=== PATIENT | male | born 1990 | race Two or more races ===

== ENCOUNTER 2020-05-09 01:34 | Emergency (ER) | payer SELFPAY ==
--- NOTE | 2020-05-09 01:52 | EDM.PDOC ---
ED HPI GENERAL MEDICAL PROBLEM - General Chief Complaint: Lower Extremity Injury/Pain Stated Complaint: RIGHT KNEE PAIN Time Seen by Provider: 05/09/20 01:35 Source of Information: Reports: Patient History Limitations: Reports: No Limitations - History of Present Illness INITIAL COMMENTS - FREE TEXT/NARRATIVE: 29M presents for a few months of worsening R knee pain. Atraumatic. No h/o overuse. Pain worse with standing and rest, slightly better when walking on it. R knee Pain Score (Numeric/FACES): 10 - Related Data Allergies Allergy/AdvReac Type Severity Reaction Status Date / Time No Known Allergies Allergy Verified 05/09/20 01:42 Home Meds: Home Meds . [No Known Home Meds] 05/09/20 [History] Past Medical History Respiratory History: Reports: None Psychiatric History: Reports: ADHD, Bipolar Social & Family History - Caffeine Use Caffeine Use: Reports: Coffee - Recreational Drug Use Recreational Drug Use: No Review of Systems - Review of Systems Review Of Systems: Comprehensive ROS is negative, except as noted in HPI. ED EXAM, GENERAL - Physical Exam Exam: See Below Exam Limited By: No Limitations General Appearance: Alert, WD/WN, No Apparent Distress Head: Atraumatic, Normocephalic Respiratory/Chest: No Respiratory Distress Cardiovascular: Normal Peripheral Pulses Extremities: Other (mild TTP of R knee joint lines b/l medial/lateral, no swelling, no palpable deformity) Psychiatric: Normal Affect, Normal Mood Skin Exam: Warm, Dry Course - Vital Signs Last Recorded V/S: Last Vital Signs Temp 97.8 F 05/09/20 01:42 Pulse 99 05/09/20 01:42 Resp 20 05/09/20 01:42 BP 136/71 05/09/20 01:42 Pulse Ox 92 L 05/09/20 01:42 - Orders/Labs/Meds Orders: Active Orders 24 hr Category Date Time Status Ozzy Bandage [RC] ONETIME Care 05/09/20 02:35 Ordered - Re-Assessments/Exams Free Text/Narrative Re-Assessment/Exam: 05/09/20 02:36 Will get XR imaging, suspect no gross abnormality so will likely d/c with OZZY wrap an instructions to f/u with ortho for further eval, possible MRI Departure - Departure Time of Disposition: 02:37 Disposition: Home, Self-Care 01 Condition: Good Clinical Impression: Derangement of knee - Discharge Information Instructions: Knee Sprain, Adult, [id number] Referrals: PCP,None [Primary Care Provider] - Ortho, doctor [Other] Forms: ED Department Discharge Additional Instructions: The following information is given to patients seen in the emergency department who are being discharged to home. This information is to outline your options for follow-up care. We provide all patients seen in our emergency department with a follow-up referral. The need for follow-up, as well as the timing and circumstances, are variable depending upon the specifics of your emergency department visit. If you don't have a primary care physician on staff, we will provide you with a referral. We always advise you to contact your personal physician following an emergency department visit to inform them of the circumstance of the visit and for follow-up with them and/or the need for any referrals to a consulting specialist. The emergency department will also refer you to a specialist when appropriate. This referral assures that you have the opportunity for follow-up care with a specialist. All of these measure are taken in an effort to provide you with optimal care, which includes your follow-up. Under all circumstances we always encourage you to contact your private physician who remains a resource for coordinating your care. When calling for follow-up care, please make the office aware that this follow-up is from your recent emergency room visit. If for any reason you are refused follow-up, please contact the [facility] Emergency Department at and asked to speak to the emergency department charge nurse. Sepsis Event Note (ED) - Evaluation Sepsis Screening Result: No Definite Risk - Focused Exam Vital Signs: Vital Signs Temp Pulse Resp BP Pulse Ox 05/09/20 01:42 97.8 F 99 20 136/71 92 L - My Orders Last 24 Hours: My Active Orders 05/09/20 02:35 Ozzy Bandage [RC] ONETIME - Assessment/Plan Last 24 Hours: My Active Orders 05/09/20 02:35 Ozzy Bandage [RC] ONETIME
--- NOTE | 2020-05-09 02:34 | CR ---
INDICATION: Right knee pain x months, no resent trauma TECHNIQUE: Knee radiograph 3 views right COMPARISON: None FINDINGS: Bone: No acute fractures or aggressive bone lesions are identified. Joint: The joint spaces of the medial, lateral, and patellofemoral compartments are unremarkable. No significant knee effusion is seen. Soft tissue: Unremarkable. No radiopaque foreign bodies are seen. IMPRESSION: 1. No acute osseous injuries or abnormalities are noted. Dictated by: Kahlil Castro MD @ 05/09/2020 02:33:46 (Electronically Signed)
== END 2020-05-09 02:56 | disposition home or self-care (01) ==
LOC: MW.ED 01:34
DX: M23.91 Unspecified internal derangement of right knee (principal)
CPT/HCPCS: 73562-26-RT; 73562-RT; 99283-25